=== PATIENT | female | born 2000 | race Caucasian/White ===

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

== ENCOUNTER → 2020-05-27 | Outpatient (CLI) | payer OTHER | LOC: M.NUC 12:39 | PROVIDERS: ATTEND Registered Nurse Diabetes Educator | DX: R10.9 Unspecified abdominal pain (principal) ==

== ENCOUNTER → 2020-06-26 | Outpatient (CLI) | payer OTHER | LOC: M.ULTRA 07:30 | PROVIDERS: ATTEND Internal Medicine Gastroenterology | DX: R79.89 Other specified abnormal findings of blood chemistry (principal) ==

== ENCOUNTER → 2020-08-24 | Outpatient (CLI) | payer OTHER | LOC: M.ULTRA 13:00 | PROVIDERS: ATTEND Registered Nurse Diabetes Educator | DX: E04.2 Nontoxic multinodular goiter (principal); E03.9 Hypothyroidism, unspecified; R13.10 Dysphagia, unspecified ==

== ENCOUNTER → 2020-09-25 | Outpatient (CLI) | payer OTHER | LOC: M.NUC 09-07 12:47 | PROVIDERS: ATTEND Registered Nurse Diabetes Educator | DX: E04.2 Nontoxic multinodular goiter (principal); E21.5 Disorder of parathyroid gland, unspecified ==